=== PATIENT | male | born 1950 | race Caucasian/White ===

== ENCOUNTER 2022-02-06 07:27 | Inpatient (IN) | payer MEDICARE, MEDICAID, SELFPAY ==
[2022-02-06] VITALS (16 sets, daily range): BP systolic 77–109; BP diastolic 52–71; PULSE 81–174; RESP 20–32; TEMP 36.4–39.3; O2SAT 87–100
--- NOTE | ~2022-02-06 | XR_ITS ---
XR chest 1V portable DATE: 02/06/2022 08:47 INDICATION: Shortness of breath TECHNIQUE: Portable AP chest views on 02/06/2022 at 0841 [id number] hours COMPARISON: None FINDINGS: Borderline heart size. Aortic calcification. There are extensive bilateral pulmonary infiltrates, scattered throughout the left lung, with atelect asis or consolidation of the left lower lobe, as well as lesser right patchy upper, mid and to a grea ter extent lower lung infiltrates. There may be mild left pleural effusion. No right pleural effusion is evident. No pneumothorax. Bilateral hyperinflation suggests COPD. Elderly chest considerably this appearance. There is diffuse osteopenia. Bilateral old healed rib fractures. There is dextroscoliosis of the thoracolumbar spine, severe degenerative change noted at the included T12-L1 and L1-2. IMPRESSION: Extensive bilateral pulmonary infiltrates, left greater than right; differential diagnosi s includes pneumonia, pulmonary edema. Reviewed, dictated and finalized at location B. IMPRESSION: Extensive bilateral pulmonary infiltrates, left greater than right; differential diagnosis includes pneumonia, pulmonary edema.
--- NOTE | 2022-02-06 07:43 | ED.URI ---
HPI - URI/Sore Throat General Chief Complaint: Upper Respiratory Infection Stated Complaint: SOB (NEW O2 REQUIREMENT); GTUBE LEAKING Time Seen by Provider: 02/06/22 07:39 History of Present Illness HPI Narrative: sent from [place] D[place] h/o afib drinking his gtube feeds low sats on oxygen from there normally isn't no c/o but pain from sacral wound and has fever 102. pt gives little history not sure when he drank this but concern for aspiration Related Data Allergies Allergy/AdvReac Type Severity Reaction Status Date / Time aspirin Allergy Unknown Verified 02/06/22 07:45 Review of Systems Constitutional: Comments: CONSTITUTIONAL: Denies chills, or sweats. has fever EYES: Denies visual changes, redness, or discharge. ENT: Denies rhinorrhea, congestion, sore throat, or otalgia. CARDIOVASCULAR: Denies chest pain, palpitations, or edema. RESPIRATORY: Denies cough. has sob GASTROINTESTINAL: Denies abdominal pain, nausea, vomiting, or diarrhea. GENITOURINARY: Denies dysuria or hematuria. SKIN: Denies rash or itching. MUSCULOSKELETAL: Denies back pain, joint pain, or myalgia. NEUROLOGIC: Denies headache, numbness, or weakness. PSYCHIATRIC: Denies anxiety or depression. Exam Const: Other: APPEARANCE: no pain in distress, thin pale Head normocephalic atraumtaic. EYES: PERRLA/EOMI, conjunctivae very clear. NOSE: Normal no drainage EARS:TMS clear Jatin Leblanc, with good light reflex. THROAT: Pharynx clear, no exudate. NECK: Supple. No adenopathy, no masses. RESPIRATORY: Airway patent, repsirations nonlabored. wheezes wet cough and rhonchi rales b/l CARDIOVASCULAR: irreg and tachy ABDOMINAL: Soft, nontender, nondistended, no hepatosplenomegally MUSCULOSKELETAl: Moves all extremities. Strenght/ROM intact, No edema, No calf tenderness. NEURO: Alert. globally weak no focal deficits SKIN:: Warm, dry. pale PSYCHIATRIC: Normal affect/mood, normal interaction with parents. Course Vital Signs Vital signs: Vital Signs Temperature 39.3 C H 02/06/22 07:29 Pulse Rate 168 H 02/06/22 07:29 Respiratory Rate 31 H 02/06/22 07:29 Blood Pressure 90/65 L 02/06/22 07:29 Pulse Oximetry 91 02/06/22 07:29 Oxygen Delivery Nasal Cannula 02/06/22 07:29 Oxygen Flow Rate 4 02/06/22 07:29 Temperature 39.3 C H 02/06/22 07:29 Pulse Rate 159 H 02/06/22 08:31 Respiratory Rate 30 H 02/06/22 08:31 Blood Pressure 90/65 L 02/06/22 07:29 Pulse Oximetry 91 02/06/22 07:29 Oxygen Delivery Nasal Cannula 02/06/22 07:29 Oxygen Flow Rate 4 02/06/22 07:29 MDM - URI/Sore Throat Lab Data Result diagrams: 02/06/22 07:53 02/06/22 07:53 Labs: Lab Results 02/06/22 02/06/22 02/06/22 Range/Units 07:53 07:53 07:53 WBC 34.6 H (4.5-10.0) K/mm3 RBC 3.62 L (4.6-6.20) M/mm3 Hgb 9.2 L (14.0-18.0) g/dL Hct 29.9 L (42.0-52.0) % MCV 82.6 (80-100) fl MCH 25.4 L (26-34) pg MCHC 30.8 L (32-36) g/dl RDW 19.2 H (11.5-14.5) % Plt Count 637 H (150-375) k/mm3 MPV 9.1 (7.4-10.4) fl Immature Gran % (Auto) Not Reportable Neut % (Auto) Not Reportable Lymph % (Auto) Not Reportable Mclean % (Auto) Not Reportable Eos % (Auto) Not Reportable Baso % (Auto) Not Reportable Lymph # (Auto) Not Reportable Mclean # (Auto) Not Reportable Eos # (Auto) Not Reportable Baso # (Auto) Not Reportable Abs Immat Gran (auto) Not Reportable Absolute Neuts (auto) Not Reportable Absolute Nucleated RBC Not Reportable Total Counted 100 Neutrophils % (Manual) 76 H (46-73) % Band Neutrophils % 17 H (0-6) % Monocytes % (Manual) 5 (3-9) % Metamyelocytes % 2 % Nucleated RBC % Not Reportable Abs Neuts (Manual) 32.17 H (1.3-6.7) K/mm3 Abs Monocytes (Manual) 1.73 H (0.1-0.90) K/mm3 Platelet Estimate Increased (Adequate) Hypochromasia 1+ (NORMAL) Anisocytosis 1+ (NORMAL) PT 22.5 H (1
[2022-02-06] MEDS: ACETAMINOPHEN 650 MG SUPPOSITORY RECTAL (07:58)
[2022-02-06 08:01] LABS: Hematocrit 29.9 % (42.0-52.0); Hemoglobin 9.2 g/dL (14.0-18.0); Mean Corpuscular HGB Conc 30.8 g/dl (32-36); Mean Corpuscular Hemoglobin 25.4 pg (26-34); Mean Corpuscular Volume 82.6 fl (80-100); Mean Platelet Volume 9.1 fl (7.4-10.4); Platelet Count Result 637 k/mm3 (150-375); Red Blood Count 3.62 M/mm3 (4.6-6.20); Red Cell Distribution Width 19.2 % (11.5-14.5); White Blood Count 34.6 K/mm3 (4.5-10.0)
[2022-02-06] MEDS: AMPICILLIN SULB 3 GM/NS 100 ML 3 GM/100 ML VIAL IVPB (08:01)
[2022-02-06] MEDS: IPRATROPIUM BR 0.02% INH SOLN 0.5 MG/2.5 ML VIAL INHALATION (08:10)
[2022-02-06 08:13] LABS: INR 2.1; Prothrombin Time 22.5 Seconds (11.1-14.7)
--- NOTE | 2022-02-06 08:13 | ECG_ITS ---
Measurements Intervals [place] Rate: 169 P: DE: 0 QRS: 61 QRSD: 127 T: 37 QT: 272 QTc: 457 Interpretive Statements ATRIAL FIBRILLATION WITH RAPID VENTRICULAR RESPONSE INDETERMINATE AXIS RIGHT BUNDLE BRANCH BLOCK [120+ ms QRS DURATION, UPRIGHT V1, 40+ ms S IN I/aVL/V4/V5/V6] ST ABNORMALITY INFEROLATERAL LEADS, CONSIDER SUBENDOCARDIAL ISCHEMIA ABNORMAL ECG NO PREVIOUS ECG AVAILABLE FOR COMPARISON Electronically Signed On 02-06-2022 14:09:13 CDT by Daryl Sahu M.D.
[2022-02-06 08:14] LABS: Partial Thromboplastin Time 41.2 SECONDS (22.3-36.8)
[2022-02-06 08:16] LABS: Lactic Acid Reflex 2.5 mmol/L (0.7-2.0)
[2022-02-06 08:25] LABS: Alanine Aminotransferase 41 U/L (6-50); Albumin Level 3.2 g/dL (3.5-5.1); Alkaline Phosphatase 118 U/L (38-126); Anion Gap 10 mmol/L (8-16); Aspartate Amino Transferase 48 U/L (17-59); Bilirubin,Total 0.3 mg/dL (0.2-1.3); Blood Urea Nitrogen 39 mg/dL (9-20); Calcium 8.7 mg/dL (8.4-10.2); Carbon Dioxide 33 mmol/L (22-30); Chloride 98 mmol/L (98-107); Estimated Glomerular Filt Rate > 60; Glucose 175 mg/dL (65-110); Potassium 4.3 mmol/L (3.4-5.0); Sodium 141 mmol/L (137-145)
[2022-02-06 08:26] LABS: Alveolar/Arterial O2 Gradient 148.7 mmHg; Base Excess ABG 7.1 mEq/l (+/-2.0); Fractional Inspired Oxygen 36 %; HCO3 ABG 29.6 mEq/l (22.0-26.0); Oxygen Content ABG 11.1 %vol (16.0-22.0); Oxyhemoglobin 93.1 % THb (90.0-100.0); PCO2 ABG 33.4 mmHg (35.0-45.0); PO2 ABG 69.2 mmHg (80.0-100.0); PO2 FiO2 Ratio Arterial Blood 1.92 %; Total Hemoglobin 8.4 g/dL (12.0-18.0)
[2022-02-06 08:30] LABS: Device NASAL CANNULA; Site Drawn LEFT BRACHIAL; pH ABG 7.565 (7.350-7.450)
[2022-02-06 08:38] LABS: SARS-CoV-2 RNA PCR Negative
[2022-02-06 08:46] LABS: Anisocytosis 1+ (NORMAL); Band Neutrophils Percent 17 % (0-6); Metamyelocytes Percent 2 %; Monocytes Absolute Manual 1.73 K/mm3 (0.1-0.90); Monocytes Percent Manual 5 % (3-9); Neutrophils Absolute Manual 32.17 K/mm3 (1.3-6.7); Neutrophils Percent Manual 76 % (46-73); Platelet Estimate Increased (Adequate); Total Cells Counted 100
[2022-02-06 08:47] LABS: Hypochromasia 1+ (NORMAL)
[2022-02-06] MEDS: fentaNYL CITRATE INJ (*CRX) 100 MCG/2 ML VIAL 50 MCG IV PUSH (09:30)
[2022-02-06] MEDS: ONDANSETRON INJ 4 MG/2 ML VIAL IV PUSH (09:30)
[2022-02-06 09:35] LABS: Add Urine Microscopic? YES; Appearance Urine Clear (Clear); Bilirubin Urine Negative (Negative); Blood Urine Negative (Negative); Color Urine Yellow (Yellow); Glucose Urine UA Negative (Negative); Ketones Urine Trace mg/dL (Negative); Leukocyte Esterase Ur Negative LEU/UL (Negative); Nitrate Urine Negative (Negative); Protein Urine 2+ mg/dL (Negative); Specific Grav Ur 1.015 (1.001-1.035); Urobilinogen Urine 0.2 mg/dL (<2.0)
[2022-02-06 09:42] LABS: Mucus Urine Rare /lpf; WBC Urine 0-3 /hpf
[2022-02-06 09:46] LABS: CRP > 45.0 mg/dL (<1.0)
--- NOTE | 2022-02-06 10:30 | PC.NURSE ---
Dr Perez stated to hold [facility].
[2022-02-06 10:58] LABS: Reflex Lactic Acid Yes or No Add Lactic
--- NOTE | 2022-02-06 11:07 | PC.NURSE ---
Patient taken to room 204 by this nurse and process safety engineering technologist. pile driving technician assisted ED with transfer from stretcher to bed.
--- NOTE | 2022-02-06 11:15 | ADMGEN ---
This patient, Young Pompa, was admitted to IMU Room 204-01. Patient/family oriented to hospital policies and general routines including ID bracelet, bed and alarms, visiting hours, pain management, procedures, bathroom and other care routines, personal items, smoking policy, room service/diet, and visiting hours. Information on how to activate the Rapid Response Team has been discussed. Patient/Family are encouraged to report perceived risks to care and to ask questions if they do not understand what they are told or what they should do.
--- NOTE | 2022-02-06 11:22 | PM.IMHP ---
H&P: HPI History of Present Illness Date/Time: 02/06/22 11:22 Chief Complaint: Shortness of breath Narrative: 71yo male with dysphagia and paranoid schizophrenia [facility]. Patient is alert and somewhat oriented but has trouble providing a detailed history. Hx was supplemented by family. Last hospitalization in ICU at [facility] in [place] in December. Family state patient can not be intubated orally and would need a trach. He has multiple right hip surgeries with last one in December. Patient states he has been sick for ?awhile? but again does not provide history. When asked if he has a cough, starts to cough but does not answer the question. Per discussion with the ED physician, it appears the patient was drinking his G-tube feedings. Patient was sent from jail because of shortness of breath. Per EMS notes, blood pressure was 102/54 with a pulse of 150. EKG was AFib with RVR. He was 91% on 3 L nasal cannula. Patient does not wear oxygen at the jail. In the emergency room, blood pressure was 89/70 with a pulse of 174. [place] [address] with bandemia. Chest x-ray reviewed personally showing extensive bilateral pulmonary infiltrates left greater than right felt to be pneumonia. Patient she with IV fluids. He was given 1 dose of fentanyl. Blood pressure improved. Diltiazem was ordered but not given. Nebulizer treatments given. Unasyn started. Patient is a DNR. According to the jail notes, patient is comfort focused treatment only. Patient was admitted to the IMU for further care. 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 No one is aware of why patient has a leg brace in place Review of Systems Review of Systems: ROS unobtainable: Yes unobtainable due to medical condition PMFSH Past Medical History Medical History (Updated 02/06/22 @ 12:22 by Trevon Taylor MD) COPD (chronic obstructive pulmonary disease) Dysphagia Gastrointestinal tube in situ Paranoid schizophrenia Spinal stenosis Surgical History Surgical History (Updated 02/06/22 @ 12:06 by Trevon Taylor MD) History of hip surgery Family History Family History (Updated 02/06/22 @ 12:10 by Trevon Taylor MD) Other Family history unknown Social History Social History (Updated 02/06/22 @ 12:11 by Trevon Taylor MD) Social History: [facility] in jail. His significant other toñito about a year ago. His significant other's sister Linnea Ron is his [id number]. Smoking status: Unknown if ever smoked Alcohol intake: unknown Substance use: unknown Spiritual care concerns: No Meds Home Medications and Allergies Home Medications Medication Instructions Recorded Confirmed Type acetaminophen 650 mg tablet 650 mg PO Q6H PRN Pain (Scale 02/06/22 02/06/22 History Score 1-3) allopurinol 100 mg tablet 100 mg PO DAILY 02/06/22 02/06/22 History apixaban 5 mg tablet (Eliquis) 5 mg PO BID 02/06/22 02/06/22 History baclofen 10 mg tablet 10 mg PO BID 02/06/22 02/06/22 History budesonide-formoterol HFA 160 2 puff inhalation BID 02/06/22 02/06/22 History mcg-4.5 mcg/actuation aerosol inhaler (Symbicort) buspirone 7.5 mg tablet 7.5 mg PO BID 02/06/22 02/06/22 History chlorzoxazone 500 mg tablet 500 mg PO BID 02/06/22 02/06/22 History clonazepam 0.5 mg tablet 0.5 mg PO BID 02/06/22 02/06/22 History cyclobenzaprine 5 mg tablet 5 mg PO BID 02/06/22 02/06/22 History gabapentin 400 mg capsule 400 mg PO TID 02/06/22 02/06/22 History haloperidol decanoate 100 mg/mL 100 mg IM MONTHLY 02/06/22 02/06/22 History intramuscular solution hydrocodone 5 mg-acetaminophen 325 1 tablet PO TID 02/06/22 02/06/22 History mg tablet metoprolol tartrate 25 mg tablet 25 mg PO BID 02/06/22 02/06/22 History multivitamin with iron-mineral 1 ea PO DAILY 02/06/22 02/06/22 History pantoprazole 40 mg tablet,delayed 40 mg PO BID 02/06/22
[2022-02-06 11:47] LABS: Lactic Acid 1.9 mmol/L (0.7-2.0)
[2022-02-06 12:04] LABS: Troponin I 0.041 ng/mL (0.000-0.034)
[2022-02-06] MEDS: MORPHINE SULFATE INJ (*CRX) 50 MG in SODIUM CHLORIDE 0.9% IV 95 ML IV CONT (13:26)
[2022-02-06] MEDS: MORPHINE SULFATE (*CRX) 2 MG/ML INJ IV PUSH (14:57)
[2022-02-07] VITALS: BP 87/54; PULSE 79; RESP 18; TEMP 36.5; O2SAT 80
[2022-02-07 08:00] VITALS: BP 93/60; PULSE 72; RESP 18; TEMP 36.2; O2SAT 85
--- NOTE | 2022-02-07 11:14 | PC.NURSE ---
This patient, Young Pompa, was received from [IMU Rm 201-1 ]on 02/07/22 at 1114. Patient oriented to unit policies and routines. Patient in bed resting comfortably in bed with no complaints of pain at this time. Call light within reach.
[2022-02-07] MEDS: MORPHINE SULFATE INJ (*CRX) 50 MG in SODIUM CHLORIDE 0.9% IV 95 ML IV CONT (12:24)
--- NOTE | 2022-02-07 14:00 | PC.NURSE ---
Removed calles catheter and also catheter in G tube insertion sit. Post mortem care given.
--- NOTE | 2022-02-08 06:43 | P.DN_ITS ---
Discharge Summary Date and Time Date of : 02/07/22 Time of : 12:30 Provider Pronounced By: Maribel Bentley RN Probable Cause of Probable Cause of : Severe sepsis Summary Hospital Course: In the ER, blood pressure was 89/70 with a pulse of 174.? [place] [address] with bandemia.? Chest x-ray showing extensive bilateral pulmonary infiltrates left greater than right felt to be pneumonia.? Patient was treated with IV fluids.? Blood pressure improved initially.? Unasyn started.?According to the intermediate notes, patient is comfort focused treatment only and was DNR.? Patient was admitted to the IMU for further care. Patient has CDiff and was on treatment. Blood pressure however remained low at 84/52.? Spoke with family and the power of assistant attorney general.?The critical condition of the patient was relayed and options were discussed.?Endotracheal intubation and pressor therapy was not desired.? Offered comfort measures with morphine drip verses continuing IV fluids and antibiotics to see if patient responds.? After speaking among themselves, the [id number] called back and stated that they want to proceed with comfort measures.? They stated clearly that the patient is not able to make decisions for himself and that his quality life is poor.? Provider assessment shows that patient is oriented but lacks capacity to understand the severity of his condition. As such we proceeded with comfort measures with Morphine drip.?Patient was kept comfortable. He on 02/07/22. Family made aware Additional Data Confirmation of as documented by pronouncing clinician: Pupillary Reflex, Palpable Pulses, Response to Stimuli, Heart Tones and Breath Sounds Name of Provider Notified: Dr. Taylor Time Provider Notified: 12:38 Provider Requests Autopsy: No Family Requests Autopsy: No Remote Broadcast Technician Notified: Yes Date [facility] Notified of : 02/07/22 Time [facility] Notified of : 13:14
== END 2022-02-07 12:30 | disposition expired | DRG 871 ==
LOC: ANHED 09:13 → ANHIMU 09:47 → ANH3MEDSUR 02-07 09:44
PROVIDERS: Admitting Provider Internal Medicine; Emergency Provider Emergency Medicine; Visit Provider Internal Medicine
DX: A41.9 Sepsis, unspecified organism (principal); R65.21 Severe sepsis with septic shock; J18.9 Pneumonia, unspecified organism; J69.0 Pneumonitis due to inhalation of food and vomit; J96.00 Acute respiratory failure, unspecified whether with hypoxia or hypercapnia; F20.0 Paranoid schizophrenia; A04.72 Enterocolitis due to Clostridium difficile, not specified as recurrent; Z20.822 Contact with and (suspected) exposure to COVID-19; I48.91 Unspecified atrial fibrillation; J44.9 Chronic obstructive pulmonary disease, unspecified; R77.8 Other specified abnormalities of plasma proteins; R13.10 Dysphagia, unspecified; M48.00 Spinal stenosis, site unspecified
CPT/HCPCS: 36415; 36600; 71045; 80053; 81001; 82805; 83605; 84484; 85025; 85610; 85730; 86140; 87040; 87147; 87181; 87186; 93005; 94640; 96361; 96374; 96375; 99285; A9270; C9803; J0295; J2270; J2405; J3010; J7120; U0003; U0005